=== PATIENT | male | born 1980 | race Caucasian/White ===

== ENCOUNTER 2020-07-03 08:11 | Emergency (ER) | payer OTHER ==
[2020-07-03] MEDS ORDERED: NA CHLORIDE 0.9% 500 ML ONE (08:46)
[2020-07-03 08:51] LABS: Absolute Lymphocytes (CBC) 2.9 K/uL (0.7-4.9); Basophils % 0.6 % (0-1.3); Hematocrit 45.8 % (39.6-49.0); Lymphocytes % 20.9 % (15.3-44.8); MPV 8.6 fL (7.6-11.3); RBC Red Blood Cell Count 5.05 M/uL (4.33-5.43)
[2020-07-03 09:06] LABS: ALT/SGPT 43 U/L (12-78); AST/SGOT 22 U/L (15-37); Albumin 3.8 g/dL (3.4-5.0); Alkaline Phosphatase 79 U/L (45-117); BUN Blood Urea Nitrogen 9 mg/dL (7-18); Bicarbonate 24 mmol/L (21-32); Bilirubin Direct < 0.1 mg/dL (0-0.2); Bilirubin Total 0.7 mg/dL (0.2-1.0); Glucose Level 117 mg/dL (74-106); Lipase 50 U/L (73-393); Potassium 3.5 mmol/L (3.5-5.1); Protein, Total 7.3 g/dL (6.4-8.2); Sodium Level 140 mmol/L (136-145)
--- NOTE | 2020-07-03 09:18 | RAD REPORT ---
EXAM DESCRIPTION: CTAbdomen Pelvis W Contrast - 07/03/2020 8:53 am CLINICAL HISTORY: Abdominal pain. ABD PAIN COMPARISON: No comparisons TECHNIQUE: Biphasic CT imaging of the abdomen and pelvis was performed with 100 ml non-ionic IV cont rast. All CT scans are performed using dose optimization technique as appropriate and may include automated exposure control or mA/KV adjustment according to patient size. FINDINGS: The lung bases are clear. The liver, spleen, pancreas, adrenal glands and kidneys are within normal limits. No bowel obstruction, free air, free fluid or abscess. Small fat containing umbilical and inguinal he rnia. The appendix is normal. No evidence of significant lymphadenopathy. No suspicious bony findings. IMPRESSION: No acute intra-abdominal or pelvic finding.
--- NOTE | 2020-07-03 09:43 | ER ---
Nurse's Notes [facility] Name: Rosendo Mccormack Age: 40 yrs Sex: Male : 1980 Arrival Date: 07/03/2020 Time: 08:13 Bed 6 Private MD: Diagnosis: Unilateral inguinal hernia, without obstruction or gangrene, not specified as recurrent Presentation: 07/03 08:18 Chief complaint: Patient states: lower abd pain radiating to testicles and right leg aa5 that began Saturday night. Pt denies nausea/vomiting/diarrhea. Denies difficulty voiding. Coronavirus screen: Client denies travel out of the [place] in the last 14 days. At this time, the client does not indicate any symptoms associated with coronavirus-19. Ebola Screen: Patient negative for fever greater than or equal to 101.5 degrees Fahrenheit, and additional compatible Ebola Virus Disease symptoms. Initial Sepsis Screen: Does the patient meet any 2 criteria? No. Patient's initial sepsis screen is negative. Does the patient have a suspected source of infection? No. Patient's initial sepsis screen is negative. Risk Assessment: Do you want to hurt yourself or someone else? Patient reports no desire to harm self or others. Onset of symptoms was June 2020. 08:18 Acuity: RADHA 3 aa5 08:18 Method Of Arrival: Ambulatory aa5 Historical: - Allergies: 08:20 No Known Allergies; aa5 - Home Meds: 08:20 None [Active]; aa5 - PMHx: 08:20 None; aa5 - PSHx: 08:20 None; aa5 - Immunization history:: Adult Immunizations unknown. - Social history:: Smoking status: Patient reports the use of cigarette tobacco products, smokes one pack cigarettes per day. - Family history:: not pertinent. - Hospitalizations: : No recent hospitalization is reported. Screenin:42 Abuse screen: Denies threats or abuse. Nutritional screening: No deficits noted. jd3 Tuberculosis screening: No symptoms or risk factors identified. Fall Risk IV access (20 points). Ambulatory Aid- None/Bed Rest/Nurse Assist (0 pts). Gait- Normal/Bed Rest/Wheelchair (0 pts) Mental Status- Oriented to own ability (0 pts). Total Jennings Fall Scale indicates No Risk (0-24 pts). Assessment: 08:40 General: Appears in no apparent distress. uncomfortable, Behavior is calm, cooperative, jd3 appropriate for age. Pain: Complains of pain in right lower quadrant Pain radiates to groin and right leg Quality of pain is described as radiating, shooting, tender. Neuro: Level of Consciousness is awake, alert, obeys commands, Oriented to person, place, time, situation. Cardiovascular: Denies chest pain, Capillary refill < 3 seconds Patient's skin is warm and dry. Respiratory: Airway is patent Respiratory effort is even, unlabored, Respiratory pattern is regular, symmetrical, Denies cough, shortness of breath. GI: Abdomen is flat, non-distended, Bowel sounds present X 4 quads. Abd is soft X 4 quads Abdomen is tender to palpation in right lower quadrant Reports lower abdominal pain, nausea, Patient currently denies constipation, diarrhea, vomiting. : No signs and/or symptoms were reported regarding the genitourinary system. EENT: No signs and/or symptoms were reported regarding the EENT system. Derm: Skin is intact, Skin is dry, Skin is normal, Skin temperature is warm. Musculoskeletal: Circulation, motion, and sensation intact. Range of motion: intact in all extremities. 09:36 Reassessment: Patient appears in no apparent distress at this time. Patient and/or jd3 family updated on plan of care and expected duration. Pain level reassessed. Patient is alert, oriented x 3, equal unlabored respirations, skin warm/dry/pink. Patient states feeling better. Vital Signs: 08:20 BP 132 / 94; Pulse 78; Resp 18 S; Temp 97.6(O); Pulse Ox 100% on R/A; Weight 102.06 kg aa5 (R); Height 6 ft. 3 in. (190.50 cm) (R); Pain 6/10; 09:39 BP 127 / 92; Pulse 68; Resp 16 S; Pulse Ox 99% on R/A; jd3 08:20 Body Mass Index 28.12 (102.06 kg, 190.50 cm) aa5 ED Course: 08:13 Patient arrived in ED. ag5 08:16 Amor Alcaraz MD is Attending Physician. rn 08:18 Arm band placed on. aa5 08:20 Triage completed. aa5 08:27 Nogueira, Jahala, RN is Primary Nurse. jl7 08:38 Basic Metabolic Panel Sent. em1 08:38 CBC with Diff Sent. em1 08:38 Hepatic Function Sent. em1 08:38 Lipase Sent. em1 08:38 Initial lab(s) drawn, by me, sent to lab. Inserted saline lock: 20 gauge in right em1 forearm, using aseptic technique. Blood collected. Missed attempt(s): 20 gauge in right forearm. Bleeding controlled, band aid applied, catheter tip intact. 08:42 Patient has correct armband on for positive identification. Bed in low position. Call jd3 light in reach. Side rails up X 1. Pulse ox on. NIBP on. 08:43 Primary Nurse role handed off by Sarina Nogueira RN jd3 08:43 Clifton Goodman, RN is Primary Nurse. jd3 08:53 CT Abd/Pelvis - IV Contrast Only In Process Unspecified. EDMS 09:36 ED physician to see patient. jd3 09:41 Marcos Mauricio MD is Referral Physician. rn 09:59 No provider procedures requiring assistance completed. IV discontinued, intact, jd3 bleeding controlled, No redness/swelling at site. Pressure dressing applied. Administered Medications: 08:40 Drug: NS 0.9% 500 ml Route: IV; Rate: bolus; Site: right forearm; jd3 09:40 Follow up: Response: No adverse reaction; IV Status: Completed infusion; IV Intake: jd3 500ml Intake: 09:40 IV: 500ml; Total: 500ml. jd3 Outcome: 09:41 Discharge ordered by . rn 09:59 Discharged to home ambulatory. jd3 09:59 Condition: stable 09:59 Discharge instructions given to patient, Instructed on discharge instructions, follow up and referral plans. Demonstrated understanding of instructions, follow-up care. 10:00 Patient left the ED. jd3 Signatures: Dispatcher [employer] EDMS Amor Alcaraz MD MD rn Martinez, Eric em1 Gabriella Arreola RN RN aa5 Sarina Nogueira, KIRSTIN FULTON jlClifton Álvarez, KIRSTIN RN Marilee Brown ag5 Corrections: (The following items were deleted from the chart) 08:21 08:20 102.06 kg Reported; Height 6 ft. 3 in. Reported; BMI: 28.1; Pain 6/10; aa5 aa5 10:00 10:00 Response: No adverse reaction; IV Status: Completed infusion; IV Intake: 500ml [id number]
--- NOTE | 2020-07-03 09:43 | EDPHYS ---
Physician Documentation [facility] Name: Rosendo Mccormack Age: 40 yrs Sex: Male : 1980 Arrival Date: 07/03/2020 Time: 08:13 Bed 6 Private MD: ED Physician Amor Alcaraz HPI: 07/03 08:43 This 40 yrs old Male presents to ER via Ambulatory with complaints of rn Abdominal Pain. 08:43 The patient presents with abdominal pain right lower quadrant. Onset: The rn symptoms/episode began/occurred 2 day(s) ago. The symptoms do not radiate. Associated signs and symptoms: Pertinent negatives: blood in stools, diarrhea, dysuria, fever, hematuria. The symptoms are described as sharp. Modifying factors: The symptoms are alleviated by nothing, the symptoms are aggravated by movement, touching the area. Severity of pain: At its worst the pain was moderate in the emergency department the pain is unchanged. The patient has not experienced similar symptoms in the past. The patient has not recently seen a physician. Historical: - Allergies: 08:20 No Known Allergies; aa5 - Home Meds: 08:20 None [Active]; aa5 - PMHx: 08:20 None; aa5 - PSHx: 08:20 None; aa5 - Immunization history:: Adult Immunizations unknown. - Social history:: Smoking status: Patient reports the use of cigarette tobacco products, smokes one pack cigarettes per day. - Family history:: not pertinent. - Hospitalizations: : No recent hospitalization is reported. ROS: 08:43 Constitutional: Negative for fever, chills, and weight loss, Eyes: Negative for injury, rn pain, redness, and discharge, Cardiovascular: Negative for chest pain, palpitations, and edema, Respiratory: Negative for shortness of breath, cough, wheezing, and pleuritic chest pain, Abdomen/GI: + RLQ abd pain Back: Negative for injury and pain, : Negative for injury, bleeding, discharge, and swelling, MS/Extremity: Negative for injury and deformity, Skin: Negative for injury, rash, and discoloration, Neuro: Negative for headache, weakness, numbness, tingling, and seizure. Exam: 08:43 Constitutional: This is a well developed, well nourished patient who is awake, alert, rn and in no acute distress. Head/Face: Normocephalic, atraumatic. Cardiovascular: Regular rate and rhythm. No pulse deficits. Respiratory: No increased work of breathing, no retractions or nasal flaring. Abdomen/GI: Soft, + tender RLQ with guarding, no rebound Male : No scrotal swelling or tenderness of testes Skin: Warm, dry MS/ Extremity: Pulses equal, no cyanosis. Neurovascular intact. Full, normal range of motion. Equal circumference. Neuro: Awake and alert, GCS 15 Vital Signs: 08:20 BP 132 / 94; Pulse 78; Resp 18 S; Temp 97.6(O); Pulse Ox 100% on R/A; Weight 102.06 kg aa5 (R); Height 6 ft. 3 in. (190.50 cm) (R); Pain 6/10; 09:39 BP 127 / 92; Pulse 68; Resp 16 S; Pulse Ox 99% on R/A; jd3 08:20 Body Mass Index 28.12 (102.06 kg, 190.50 cm) aa5 Procedures: 09:37 Performed Reduction of right inguinal hernia. Patient placed in Trendelenburg position, rn constant pressure applied to right inguinal region from above and through scrotum, felt reduction, and patient with immediate resolution of pain in groin/testes/leg. . MDM: 08:16 Patient medically screened. rn 08:47 ED course: Offered pain medication, patient prefers not to receive pain medication at rn this time.. 09:37 Differential diagnosis: appendicitis, non-specific abd pain, Ureterolithiasis, hernia. rn Data reviewed: vital signs, nurses notes, lab test result(s), radiologic studies, CT scan, and as a result, I will discharge patient. 09:37 Counseling: I had a detailed discussion with the patient and/or guardian regarding: the rn historical points, exam findings, and any diagnostic results supporting the discharge/admit diagnosis, lab results, radiology results, the need for outpatient follow up, to return to the emergency department if symptoms worsen or persist or if there are any questions or concerns that arise at home. Response to treatment: the patient's symptoms have markedly improved after treatment, and as a result, I will discharge patient. Special discussion: I discussed with the patient/guardian in detail that at this point there is no indication for admission to the hospital. It is understood, however, that if the symptoms persist or worsen the patient needs to return immediately for re-evaluation. Based on the history and exam findings, there is no indication for further emergent testing or inpatient evaluation. I discussed with the patient/guardian the need to see the general surgeon for further evaluation of the symptoms. ED course: Pt improved markedly after hernia reduction, now able to sit and stand without pain, groin pain and leg pain resolved after hernia reduction. Instructed to f/u with general surgery if continues or comes back.. 07/03 08:23 Order name: Basic Metabolic Panel; Complete Time: 09:20 rn 07/03 08:23 Order name: CBC with Diff; Complete Time: : rn 07/03 08:23 Order name: Hepatic Function; Complete Time: : rn 07/03 08:23 Order name: Lipase; Complete Time: : rn 07/03 08:23 Order name: CT Abd/Pelvis - IV Contrast Only; Complete Time: : rn 07/03 08:23 Order name: IV Saline Lock; Complete Time: 08:37 rn 07/03 08:23 Order name: Labs collected and sent; Complete Time: 08:38 rn 07/03 08:24 Order name: NPO; Complete Time: 08:32 rn Administered Medications: 08:40 Drug: NS 0.9% 500 ml Route: IV; Rate: bolus; Site: right forearm; jd3 09:40 Follow up: Response: No adverse reaction; IV Status: Completed infusion; IV Intake: jd3 500ml Disposition: 07/03/20 09:41 Discharged to Home. Impression: Unilateral inguinal hernia, without obstruction or gangrene, not specified as recurrent. - Condition is Stable. - Discharge Instructions: Hernia, Adult, Inguinal Hernia, Adult, [id number]. - Medication Reconciliation Form, Thank You Letter, Antibiotic Education, Prescription Opioid Use form. - Follow up: Marcos Mauricio MD; When: As needed; Reason: Recheck today's complaints, Re-evaluation by your physician. - Problem is new. - Symptoms have improved. Signatures: Dispatcher [employer] EDMS Amor Alcaraz MD MD rn Calderon, Audri RN RN aa5 Clifton Goodman RN RN jd3 Corrections: (The following items were deleted from the chart) 09:40 08:43 Constitutional: This is a well developed, well nourished patient who is awake, rn alert, and in no acute distress. Head/Face: Normocephalic, atraumatic. Cardiovascular: Regular rate and rhythm. No pulse deficits. Respiratory: No increased work of breathing, no retractions or nasal flaring. Abdomen/GI: Soft, + tender RLQ with guarding, no rebound Skin: Warm, dry MS/ Extremity: Pulses equal, no cyanosis. Neurovascular intact. Full, normal range of motion. Equal circumference. Neuro: Awake and alert, GCS 15 rn 10:00 09:41 07/03/2020 09:41 Discharged to Home. Impression: Unilateral inguinal hernia, jd3 without obstruction or gangrene, not specified as recurrent. Condition is Stable. Forms are Medication Reconciliation Form, Thank You Letter, Antibiotic Education, Prescription Opioid Use. Follow up: Marcos Mauricio; When: As needed; Reason: Recheck today's complaints, Re-evaluation by your physician. Problem is new. Symptoms have improved. rn
[2020-07-03 10:07] VITALS: TEMP 97.6
[2020-07-03 10:08] VITALS: BP 127/92; O2SAT 99
== END 2020-07-03 10:00 | disposition home or self-care (01) ==
LOC: ER 08:11
DX: K40.90 Unilateral inguinal hernia, without obstruction or gangrene, not specified as recurrent (principal); F17.210 Nicotine dependence, cigarettes, uncomplicated
CPT/HCPCS: 85025; 80048; 36415; 80076; 83690; 74177; 96360; 99284; Q9967; J7040